=== PATIENT | female | born 1955 | race Caucasian/White ===

== ENCOUNTER 2019-03-24 00:16 | Emergency (ER) | payer MEDICARE ==
[~2019-03-24] VITALS: Ht 172.7 cm; Wt 90.0 kg
[2019-03-24 00:25] VITALS: Ht 172.7 cm; Wt 90.0 kg
[2019-03-24] MEDS ORDERED: NORVASC5 MG PO (00:26)
[2019-03-24] MEDS ORDERED: CALCIUM 500 +1 EAC3 PO (00:27)
[2019-03-24 01:13] LABS: HEMATOCRIT 42.6 % (36.0-48.0); HEMOGLOBIN 14.4 g/dL (12-16); LYMPHOCYTES 16.7 % (15-50); MCH 31.1 pg (26.0-34.0); MCHC 33.8 g/dL (31.0-37.0); MEAN PLATELET VOLUME 10.3 fL (7.4-10.4); NEUTROPHILS 73.3 % (40-80); PLATELET COUNT 179 10x3/uL (130-400); RBC 4.63 10x6/uL (4.00-5.40); RDW 12.6 % (11.5-14.5); WBC 4.5 10x3/uL (4.8-10.8)
[2019-03-24 01:13] LABS: APPEARANCE CLEAR (CLEAR); BILIRUBIN NEGATIVE (NEGATIVE); COLOR YELLOW (YELLOW); GLUCOSE NEGATIVE (NEGATIVE); KETONE NEGATIVE (NEGATIVE); NITRITE NEGATIVE (NEGATIVE); PH 5.5 (5.0-6.0); PROTEIN NEGATIVE (NEGATIVE); SPECIFIC GRAVITY 1.015 (1.005-1.020); UROBILINOGEN NORMAL (NORMAL)
[2019-03-24 01:23] LABS: APTT 28.6 SECONDS (22.8-39.4); INR 0.97 (0.85-1.17); PROTIME 12.4 SECONDS (11.6-15.0)
[2019-03-24 01:36] LABS: ALBUMIN 3.6 g/dL (3.4-5.0); ALKALINE PHOSPHATASE 101 U/L (46-116); ALT (SGPT) 50 U/L (10-68); BILIRUBIN - TOTAL 0.34 mg/dL (0.2-1.3); CALC OSMOLALITY 271 mosm/kg (275-300); CALCIUM 9.2 mg/dL (8.5-10.1); CARBON DIOXIDE 24.7 mmol/L (21.0-32.0); CHLORIDE - SERUM 102 mmol/L (98-107); CREATININE - SERUM 1.2 mg/dL (0.6-1.3); GLUCOSE 111 mg/dL (74-106); POTASSIUM - SERUM 4.4 mmol/L (3.5-5.1); PROTEIN - SERUM 7.8 g/dL (6.4-8.2); SODIUM 135 mmol/L (136-145); UREA NITROGEN 14 mg/dL (7-18); eGFR NON AFRICAN AMERICAN 48 mL/min (90-120)
[2019-03-24 01:38] LABS: CKMB 0.7 U/L (0.0-3.6); CREATINE KINASE 82 UL (21-215)
[2019-03-24 01:39] LABS: TROPONIN-I < 0.017 ng/mL (0.000-0.060)
[2019-03-24] MEDS ORDERED: TESSALON PERLE100 MG PO (01:48)
[2019-03-24] MEDS ORDERED: XOFLUZA40 MG PO (01:48)
[2019-03-24 02:45] VITALS: BP 116/62
== END 2019-03-24 02:45 | disposition home or self-care (01) ==
LOC: D.ER 00:16
PROVIDERS: Family Medicine
DX: J11.1 Influenza due to unidentified influenza virus with other respiratory manifestations (principal); R05 Cough; I10 Essential (primary) hypertension